=== PATIENT | male | born 1995 | race Two or more races ===

== ENCOUNTER 2022-11-21 14:46 | Emergency (ER) | payer MEDICAID, OTHER ==
[~2022-11-21] VITALS: Ht 175.3 cm; Wt 69.2 kg
[2022-11-21 15:31] VITALS: BP 120/88
[2022-11-21] MEDS ORDERED: IBUP600T27 PO (16:12)
== END 2022-11-21 16:13 | disposition home or self-care (01) ==
LOC: ER 14:46
DX: S16.1XXA Strain of muscle, fascia and tendon at neck level, initial encounter (principal); V43.52XA Car driver injured in collision with other type car in traffic accident, initial encounter; Y93.89 Activity, other specified; Y92.89 Other specified places as the place of occurrence of the external cause; Y99.8 Other external cause status
CPT/HCPCS: 72040